=== PATIENT | female | born 1995 | race Caucasian/White ===

== ENCOUNTER 2024-10-15 13:47 | Outpatient (CLI) | payer OTHER, SELFPAY ==
--- NOTE | 2024-10-15 14:00 | CRLHL7_ITS ---
For Patients: As a result of the Century Cures Act, medical imaging exams and procedure reports are released immediately into your electronic medical record. You may view this report before your referring provider. If you have questions, please contact your health care provider. INDICATION: Dating and viability. LMP 08/11/2024. COMPARISON: None. TECHNIQUE: Real-time horn-scale imaging of the pelvis was performed. FINDINGS: Sonographic imaging demonstrates a single living intrauterine gestation. The embryo has a regular cardiac rate measuring 169 beats per minute. The embryo`s crown-rump length measures 2.2 cm which corresponds to a gestational age of 9 weeks 0 days with sonographic due date 05/20/2025. There is a normal-appearing yolk sac. The placenta has not yet developed. No evidence of a perigestational hemorrhage. The right ovary measures 3.2 x 1.4 x 2.6 cm and the left ovary measures 4.1 x 2.1 x 2.5 cm. Corpus luteal cyst in the left ovary. No free fluid in the pelvic cul-de-sac. IMPRESSION: 1. Single living intrauterine gestation corresponding to an ultrasound gestational age of 9 weeks 0 days with sonographic due date 05/20/2025. 2. The clinical gestational age by LMP is 9 weeks 2 days. Dictated by Brit Garnett MD @ 10/16/2024 1:39:37 AM (Electronically Signed)
== END 2024-10-15 13:48 | disposition home or self-care (01) ==
LOC: US 13:48
PROVIDERS: Visit Provider Advanced Practice Midwife
DX: Z34.91 Encounter for supervision of normal pregnancy, unspecified, first trimester (principal); Z3A.09 9 weeks gestation of pregnancy
CPT/HCPCS: 76817

== ENCOUNTER 2024-10-15 15:00 | Outpatient (CLI) | payer OTHER, SELFPAY | END 2024-10-15 15:01 | disposition home or self-care (01) | PROVIDERS: Visit Provider Advanced Practice Midwife | DX: Z34.01 Encounter for supervision of normal first pregnancy, first trimester (principal) | CPT/HCPCS: 83020; 83021; 85660; 86592; 86703; 86704; 86706; 86762; 86787; 86803; 86850; 86900; 86901; 87086; 87340 ==

== ENCOUNTER 2024-11-12 08:05 | Outpatient (CLI) | payer OTHER, SELFPAY | END 2024-11-12 08:06 | disposition home or self-care (01) | LOC: NFLDREF 14:50 | PROVIDERS: PCP Advanced Practice Midwife; Visit Provider Advanced Practice Midwife | DX: Z34.81 Encounter for supervision of other normal pregnancy, first trimester (principal) | CPT/HCPCS: 83020; 83021; 85025; 85660; 86592; 86703; 86704; 86706; 86762; 86787; 86803; 86850; 86900; 86901; 87340 ==

== ENCOUNTER 2025-01-07 13:51 | Outpatient (CLI) | payer OTHER, SELFPAY | END 2025-01-07 13:52 | disposition home or self-care (01) | LOC: US 13:51 | PROVIDERS: Visit Provider Advanced Practice Midwife | DX: Z34.92 Encounter for supervision of normal pregnancy, unspecified, second trimester (principal); Z3A.21 21 weeks gestation of pregnancy | CPT/HCPCS: 76805 ==

== ENCOUNTER 2025-02-25 14:08 | Outpatient (CLI) | payer OTHER, SELFPAY | END 2025-02-25 14:09 | disposition home or self-care (01) | LOC: NFLDREF 03-01 05:55 | PROVIDERS: Visit Provider Advanced Practice Midwife | DX: Z34.03 Encounter for supervision of normal first pregnancy, third trimester (principal) | CPT/HCPCS: 86592 ==

== ENCOUNTER 2025-03-11 08:33 | Outpatient (CLI) | payer OTHER, SELFPAY | END 2025-03-11 08:34 | disposition home or self-care (01) | LOC: NFLDREF 03-12 11:54 | PROVIDERS: Visit Provider Advanced Practice Midwife | DX: O99.810 Abnormal glucose complicating pregnancy (principal); Z3A.30 30 weeks gestation of pregnancy | CPT/HCPCS: 82951; 82952 ==

== ENCOUNTER 2025-04-22 13:20 | Outpatient (CLI) | payer OTHER, SELFPAY | END 2025-04-22 13:21 | disposition home or self-care (01) | LOC: NFLDREF 04-25 15:54 | PROVIDERS: Visit Provider Advanced Practice Midwife | DX: Z34.03 Encounter for supervision of normal first pregnancy, third trimester (principal) | CPT/HCPCS: 87081; 87653 ==

== ENCOUNTER 2025-05-22 16:38 | Inpatient (IN) | payer OTHER, SELFPAY ==
[2025-05-22] VITALS (89 sets, daily range): BP systolic 88–183; BP diastolic 51–110; PULSE 61–86; RESP 16–25; TEMP 36.2–36.8; O2SAT 92–100; BMI 28.4
--- NOTE | 2025-05-22 17:36 | W.PM.LDBA ---
Subjective History of Present Illness Date Seen: 05/22/25 Narrative: Marleen is a 30 yo at 40 4/7 weeks gestation being admitted to Labor and Delivery for ROM with spontaneous onset of labor. She [place] was on the boat [place] in a chair when she felt her pants were damp. She then felt another gush of fluid and her white shorts were visibly wet. She was not feeling any cramping or contractions when her water broke. She reports the fluid was clear/pink tinged. She endorses movement. She stopped at her family's house to shower and get fresh clothes before heading to the hospital. She reports it was on the way when she started feeling some mild contractions. She does not feel they are painful or very close but she knows she is now having them. On arrival, her pants and wheelchair were very wet with amniotic fluid. Her full history and physical was dictated by BRAXTON Carney on 04/29/2025. Please see this for details. Initial BP on arrival was taken right when patient entered the room by accident and severe range, this was not an accurate blood pressure check. Recheck was mild range. 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 # Failed 1 hour, 180 3 hour gct ordered, passed all values # ED Visit 03/23 for Left Upper Abdominal pain with SOB and difficulty breathing, RESOLVED Likely muscular in nature, chest x-ray negative Sent home with Flexeril, hydroxyzine, oxycodone, and prednisone taper Pain resolved on 03/25 Imaging:? COVID:?? Flu:?08/17/2024? Tdap:??03/11/2025 32wk Mental Health:?? OB - Problem Based A/P Additional Plan (1) PROM with onset of labor within 24 hours of rupture: Status: Acute (2) 40 weeks gestation of : Status: Acute (3) Elevated blood pressure reading without diagnosis of hypertension: Status: Acute Plan ASSESSMENT:? 30 yo at 40.4 weeks gestation? complicated by:?failed 1 hour gct, passed 3 hour Labor type: Spontaneous, early labor? Category 1 FHR pattern.?? Labor complicated by: Elevated BP not meeting criteria for HTN at this timel? GBS negative? ? PLAN:? 1. Routine intrapartum cares as ordered. Continue with expectant management? 2. Monitoring per policy, intermittent unless she meets criteria for HTN? 3. Undecided about pain plan. Wants to be offered options. Candidate for analgesia of choice, if desired.?? 4. Patient encouraged to reposition and ambulate to promote physiologic labor and .? plan reviewed. 5. Elevated BP on arrival. Will monitor hourly unless severe range. Patient is aware if she meets criteria we will draw labs and she will need to have continuous monitoring. 6. Anticipate ? Delivery/Labor/Induction Plan Plan: expectant management OB Exam Physical Exam Vital signs: Temp Pulse Resp BP Pulse Ox 97.9 F 73 25 H 143/98 H 99 05/22/25 16:45 05/22/25 17:05 05/22/25 16:45 05/22/25 17:05 05/22/25 17:05 Narrative: Vitals Reviewed Constitutional:? Alert and oriented x3 HEENT:? Normocephalic, atraumatic Neck:? Supple Lungs:? Clear to auscultation bilaterally Heart:? Regular rate and rhythm, no murmur, rub or gallop Abdomen:? Soft, nontender, and gravid. Vertex by Rashid's, confirmed with cervical exam. Extremities:? No edema or erythema Cervix: 4 cm/80%/-2 station/vertex, lots of clear fluid with exam NST: 125 bpm/moderate variability/15x15 accelerations/no decelerations/contractions every 2-4 minutes lasting 80-120 seconds Detailed Labor and Delivery Exam Patient Gravid: yes
--- NOTE | 2025-05-22 19:28 | PM.OBCN1 ---
OB - CN: HPI Date of Consult Date Seen: 05/22/25 Patient: [facility] Patient Consult date: 05/22/25 Requesting Physician: Yolis Womack CNM Primary Care Provider: Not a Local Provider Consult Narrative Narrative: The patient is a 30 year old at 40 weeks gestation that was admitted to the Center on 05/22/25 for spontaneous onset of labor. is complicated only by elevated 1 hour glucola (normal 3 hour GTT). She is an established patient of the [facility] service, where Ob consult was requested in the setting of new diagnosis of preeclampsia with severe features. On arrival, patient was noted to have nonsustained severe range BPs. She has no history of HTN in , nor chronic HTN. At 1930, she had a sustained severe range BP necessitating treatment with IV labetolol. Stat preE labs were requested, magnesium sulfate ordered for seizure prophylaxis. Patient denies headache, vision changes or RUQ pain. She is having regular and painful contractions, found to be 4/80/-2 on admission. SROM occurred prior to admission. No vaginal bleeding or decreased movement. History of Present complications: preeclampsia History History 1 Elective abortions Para 0 Spontaneous abortions Hx # Term Pregnancies Ectopic pregnancies Hx # Pregnancies Multiple births Number of Living Children 0 Labs GBS status: negative OB Labs: Lab Assessment Start: 05/22/25 18:51 Freq: ONCE Status: Complete Protocol: PC.OBGBS Activity Type Activity Date Activity User E-sign Co-sign Detail Recorded Client Recorded Date Recorded By Document 05/22/25 18:51 [facility] No Response 05/22/25 19:06 [facility] 05/22/25 18:51 Lab Assessment GBS Status negative GBS Additional Criteria None Is Patient Allergic to Penicillin? No Are Labs Available Yes Maternal Blood Type A Maternal RH Factor Positive Evaluate Maternal Rubella Immune Status Immune Hepatitis B Surface Antigen Negative Maternal HIV Status Negative Maternal Syphillis (RPR) Status Negative [facility] Medical History (Updated 05/22/25 @ 19:36 by Gracie Orr MD) Celiac disease ?K90.0 - Celiac disease (ICD-10) Surgical History (Updated 10/15/24 @ 15:08 by Yolis Womack CNM) [place] teeth removed ?K08.409 - Partial loss of teeth, unspecified cause, unspecified class (ICD-10) History of appendectomy ?Z90.49 - Acquired absence of other specified parts of digestive tract (ICD-10) Social History (Updated 10/18/24 @ 09:24 by Yolis Womack CNM) Narrative: SOCIAL Education: Masters 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[place], in [place] Partner: Patrick, [employer] in [place] Lives with: Pets: Dog, Benjamin Abuse: Denies past/present Special Diet: Gluten Free Ok with a blood transfusion: yes Culture or orthodoxy beliefs: denies RISK FACTORS Exercise Times/wk: Cross Fit, 3-4x per week; and walking Hx of Depression and/or Anxiety/other mood disorder: Anxiety, during PA school; was on Lexapro; not on medications and not seeing therapist Seat Belt Use: Routinely Smoking: Denies past/present Alcohol/day: Denies while ; Socially weekends Caffeine: Coffee, and occasional bubbler Drug Use: Denies past/present Chicken Pox: Yes as a child and vaccinated MRSA: Denies What is your current living situation?: I presently have a place to live Problems where you live: no known problems In the past 12 months, utilities in danger of being shut off: no In past 12 months, lack of transportation kept you from medical appts, meetings, work, or getting things needed for daily living: no In the past 12 mos, have been you worried that your food would run out before you had money to buy more?: never true In the past 12 mos, the food you bought just didn't last and you didn't have money to buy more?: never true Smoking Status: Never smoker How often does anyone, including family, friends and others, physically hurt you: never How often does anyone, including family, friends and others, insult or talk down to you: never How often does anyone, including family, friends and others, threaten you with harm: never How often does anyone, including family, friends and others, scream or curse at you: never Meds Home Medications and Allergies Home Medications ?Medication ?Instructions ?Recorded ?Confirmed ?Type vit 168-iron 27 mg-folic 1 cap PO DAILY 10/15/24 05/22/25 History acid 800 mcg-omega3 235 mg capsule (One-A-Day -1) cetirizine 10 mg capsule (Zyrtec) 10 mg PO QDAY PRN 04/08/25 05/22/25 History Allergies Allergy/AdvReac Type Severity Reaction Status Date / Time gluten Allergy Severe Verified 05/22/25 16:38 OB - H&P: Exam Physical Exam: Vital signs: Temp Pulse Resp BP Pulse Ox 97.9 F 63 21 169/107 H 98 05/22/25 18:01 05/22/25 19:17 05/22/25 18:01 05/22/25 19:17 05/22/25 18:03 Narrative: Patient was not personally examined. Exam per RN and Yolis Womack CNM. General: Alert and oriented Psych: Appropriate mood and affect Abdomen: Gravid. No RUQ tenderness. FHR: Category 1 - baseline 130bpm, moderate variability, accelerations present, no apparent decelerations Aline: Contractions q2-3 minutes OB - CN: A/P Assessment and Plan (1) Preeclampsia, severe: Status: Acute (2) PROM with onset of labor within 24 hours of rupture: Status: Acute (3) 40 weeks gestation of : Status: Acute Plan Marleen is a 30yo at 40w4d GA who presented for spontaneous onset of labor with SROM. On arrival, she was diagnosed with preeclampsia with severe features given systained SRBP necessitating treatment with IV Labetolol. She is an established patient of CNM service, Ob consult requested by Yolis Womack CNM. is otherwise complicated only by elevated 1 hour glucola (normal 3 hour GTT). - Patient is s/p treatment with IV labetolol 20mg then 40mg. Continue diligent BP monitoring, plan to treat sustained SRBP per protocol - No long acting antihypertensive regimen at this time, will continue starting nifedipine XL pending serial BP monitoring following response to IV labetolol - Magnesium sulfate ongoing - 4g loading dose followed by 2g/hour intrapartum and x24 hours - Serial preE labs with mag level Q6H while on magnesium. Admission set notable for: Platelets of 150, Cr 1.0, AST 45 and ALT 17. Of note, we have no prior Cr for comparison. If patient has a Cr rise to >=1.1, plan to reduce magnesium dose to 1g/hour. - Continuous monitoring ongoing. - Recommend active management of labor in the setting of preeclampsia with severe features. Expectant management ongoing at this time, given regular/painful contractions with SROM prior to admission. Admission exam /-2. Recommend pitocin augmentation as needed. - Pain control per patient preference, planning epidural - After discussion with Yolis Womack CNM we are mutually comfortable with CNM service managing labor while Ob service will manage preE with SF. Plan to continue with this co-management strategy so long as both services remain comfortable. Ob service to round . - BT A+, GBS negative - Pediatrics to attend delivery in the setting of preE with SF - Dr. Sherlyn Siddiqi to assume care at 0700 on 05/23
[2025-05-22] MEDS: LABETALOL HCL 5 MG/ML inj IVP ×2 (19:31→19:48)
[2025-05-22 19:37] LABS: Hematocrit 36.1 % (33.0-51.0); Hemoglobin* 12.6 gm/dL (12.0-16.0); Mean Corpuscular HGB Conc 35 gm/dL (32-36); Mean Corpuscular Hemoglobin 32 pg (26-34); Mean Corpuscular Volume 90 fL (80-100); Red Blood Count 4.00 m/uL (4.00-5.20); White Blood Count* 13.48 K/uL (4.50-11.00)
[2025-05-22] MEDS: MAGNESIUM IV 4 GM/100 ML PIGGYBACK IVPB (19:38)
[2025-05-22] MEDS: LACTATED RINGERS 1000 ML 1,000 ML 75 ML IV (19:38)
[2025-05-22 19:45] LABS: Slide Review Reflex No
--- NOTE | 2025-05-22 20:17 | P.OBPN_ITS ---
Subjective Date Seen: 05/22/25 Narrative: Marleen is a 30 yo at 40 4/7 weeks gestation being admitted to Labor and Delivery for ROM with spontaneous onset of labor. SROM occurred at 1310. She has since continued to leak pink to clear tinged fluid. She continues to progress spontaneously. She is supported in labor by her , Patrick. Her blood pressure at 1859 was severe range and it remained elevated on repeat. Provider was in a delivery but instructed the RN to start magnesium, treat BP, and notify MD economics professor. When CNM was available, she presented to patient bedside and reviewed plan of care. Shortly before this, patient had requested an epidural for pain management. IV was started, BP was treated with IV labetalol, and magnesium was started. She denies any epigastric pain, headache, or blurred vision. She does report feeling off but this was at the time magnesium had been started. All questions and concerns were reviewed with patient. They report understanding and agree with plan. Objective Exam: Objective: Constitutional: Alert and oriented x3, [mild/moderate/severe] distress, coping well Vital signs stable, see nurse documentation Abdomen: gravid, contractions palpate [mild/moderate/strong] with contractions and soft between Cervix: deferred NST: 125 bpm/moderate variability/15x15 accelerations/no decelerations/contractions every 2-4 minutes lasting 90 seconds. Vital Signs: Last Vital Signs Temp 97.9 F 05/22/25 18:01 Pulse 67 05/22/25 20:04 Resp 21 05/22/25 18:01 BP 160/95 H 05/22/25 20:04 Pulse Ox 97 05/22/25 20:06 Comments: WBC 13.48 K/uL (4.50-11.00) H 05/22/25 19: RBC 4.00 m/uL (4.00-5.20) 05/22/25 19:29 Hgb 12.6 gm/dL (12.0-16.0) 05/22/25 19:29 Hct 36.1 % (33.0-51.0) 05/22/25 19:29 MCV 90 fL (80-100) 05/22/25 19:29 MCH 32 pg (26-34) 05/22/25 19: MCHC 35 gm/dL (32-36) 05/22/25 19:29 Plt Count 150 K/uL (140-440) 05/22/25 19:29 BUN 14 mg/dL (5-24) 05/22/25 19: Creatinine 1.0 mg/dL (0.5-1.5) 05/22/25 19:29 Estimated Creat Clear 75.61 05/22/25 19:29 Estimated GFR 77 ml/min 05/22/25 19:29 AST 45 U/L (12-35) H 05/22/25 19: ALT 17 U/L (4-35) 05/22/25 19:29 Plan Plan: ASSESSMENT:? 30 yo at 40.4 weeks gestation? complicated by:?failed 1 hour gct, passed 3 hour Labor type: Spontaneous, early labor? Category 1 FHR pattern.?? Labor complicated by: Severe Pre-eclampsia based on sustained BP GBS negative? ? PLAN:? 1. Routine intrapartum cares as ordered. Continue with expectant management. If labor 2. Monitoring per policy, intermittent unless she meets criteria for HTN? 3. Requested epidural. Recommend magnesium bolus to be started and 1/2 way through before epidural placement. Will hold treating BP's when anesthesia is at bedside to reduce risk of low BP or distress after epidural placement. 4. Patient encouraged to reposition and ambulate to promote physiologic labor and .? plan reviewed. 5. Labs drawn, IV placed, IV magnesium started, BP treated with IV labetalol x [address] Orr consulted for comanagement during labor. She is aware of patient status and plan. Labs still pending. She recommended holding off on BP long acting at this time. Labs WNL with mildly elevated AST of 45 and Creatinine is 1.0. Per Dr. Orr, if it rises above 1.1 we are to notify her and adjust magnesium to 1 g per hour. Labs ordered for every 6 hours. CNM will continue management of labor and comanage with Dr. Orr who will manage the Pre-eclampsia. MD will assume care until discharge. 6. Anticipate
[2025-05-22 20:23] LABS: Alanine Aminotransferase* 17 U/L (4-35); Blood Urea Nitrogen* 14 mg/dL (5-24); Creatinine* 1.0 mg/dL (0.5-1.5); Est. Creatinine Clearance* 75.61; Estimated Glomerular Filt Rate 77 ml/min
[2025-05-22] MEDS: MAGNESIUM Infusion 40 GM/1,000 ML IV.SOLN IVPB (20:24)
[2025-05-22] MEDS: ROPIVACAINE 0.2 % PF 10 ML INJ 20 MG EPIDURAL (20:25)
[2025-05-22] MEDS: LIDOCAINE 2% (PF) 5 ML VIAL EPIDURAL (20:25)
[2025-05-22 20:26] LABS: Aspartate Amino Transferase* 45 U/L (12-35)
[2025-05-22] MEDS: ROPIVACAINE 0.2% 100 ml 100 ML 12 MG EPIDURAL (20:37)
--- NOTE | 2025-05-22 20:37 | PM.ANBPRC ---
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 [employer] in [place] Lives with: Pets: Dog, Benjamin Abuse: Denies past/present Special Diet: Gluten Free Ok with a blood transfusion: yes Culture or holiness beliefs: denies RISK FACTORS Exercise Times/wk: Cross Fit, 3-4x per week; and walking Hx of Depression and/or Anxiety/other mood disorder: Anxiety, during PA school; was on Lexapro; not on medications and not seeing therapist Seat Belt Use: Routinely Smoking: Denies past/present Alcohol/day: Denies while ; Socially weekends Caffeine: Coffee, and occasional bubbler Drug Use: Denies past/present Chicken Pox: Yes as a child and vaccinated MRSA: Denies What is your current living situation?: I presently have a place to live Problems where you live: no known problems In the past 12 months, utilities in danger of being shut off: no In past 12 months, lack of transportation kept you from medical appts, meetings, work, or getting things needed for daily living: no In the past 12 mos, have been you worried that your food would run out before you had money to buy more?: never true In the past 12 mos, the food you bought just didn't last and you didn't have money to buy more?: never true Smoking Status: Never smoker How often does anyone, including family, friends and others, physically hurt you: never How often does anyone, including family, friends and others, insult or talk down to you: never How often does anyone, including family, friends and others, threaten you with harm: never How often does anyone, including family, friends and others, scream or curse at you: never Meds Home Medications and Allergies Home Medications ?Medication ?Instructions ?Recorded ?Confirmed ?Type vit 168-iron 27 mg-folic 1 cap PO DAILY 10/15/24 05/22/25 History acid 800 mcg-omega3 235 mg capsule (One-A-Day -1) cetirizine 10 mg capsule (Zyrtec) 10 mg PO QDAY PRN 04/08/25 05/22/25 History Allergies Allergy/AdvReac Type Severity Reaction Status Date / Time gluten Allergy Severe Verified 05/22/25 16:38 Results Labs Labs: Laboratory Results - last 24 hr 05/22/25 19:29 WBC 13.48 H RBC 4.00 Hgb 12.6 Hct 36.1 MCV 90 MCH 32 MCHC 35 Plt Count 150 BUN 14 Creatinine 1.0 Estimated Creat Clear 75.61 Estimated GFR 77 AST 45 H ALT 17 Vital Signs Vital Signs: Last Vital Signs Temp 97.9 F 05/22/25 18:01 Pulse 64 05/22/25 20:35 Resp 21 05/22/25 18:01 BP 118/75 05/22/25 20:35 Pulse Ox 98 05/22/25 20:36 Weight: 79.832 kg Height: 167.64 cm Anesthesia Procedures Epidural Insertion Patient Location: OB Start Time: 19:40 Stop Time: 20:37 Start Date: 05/22/25 Stop Date: 05/22/25 Reason for Block: procedure for pain Patient Position: sitting Performed By: Ramon Elkins Preanesthetic Checklist: IV checked, risks and benefits discussed, surgical consent, monitors and equipment checked, pre-op evaluation, timeout performed and anesthesia consent Prep: chlorhexidine gluconate Monitoring: blood pressure monitoring, continuous pulse oximetry and heart rate Approach: midline Vertebral Space: lumbar (1-5) Needle Type: Tuohy needle Injection Technique: continuous catheter Needle gauge: 17 Needle Length (cm): 10 cm Needle Insertion Depth (cm): 7 Catheter Gauge: 19 Catheter Type: multi-orifice Catheter at skin depth (cm): 13 Test Dose Result: negative and lidocaine 1.5% with epinephrine 1 to 200,000
[2025-05-22] MEDS: ePHEDrine sulfate 5 MG/ML inj 10 MG IVP ×2 (20:52→21:22)
[2025-05-22] MEDS: PHENYLEPHRINE 100 MCG/ML SYRINGE IVP (21:32)
[2025-05-22] MEDS: OXYTOCIN 30 unit/500 ML in NS 30 UNIT/500 ML BAG IVPB (22:54)
[2025-05-23] VITALS (112 sets, daily range): BP systolic 97–152; BP diastolic 52–99; PULSE 65–89; RESP 16–24; TEMP 36.3–37; O2SAT 90–100
[2025-05-23 01:14] LABS: Hematocrit 32.6 % (33.0-51.0); Hemoglobin* 11.4 gm/dL (12.0-16.0); Mean Corpuscular HGB Conc 35 gm/dL (32-36); Mean Corpuscular Hemoglobin 32 pg (26-34); Mean Corpuscular Volume 90 fL (80-100); Red Blood Count 3.62 m/uL (4.00-5.20); White Blood Count* 15.96 K/uL (4.50-11.00)
[2025-05-23 01:19] LABS: Slide Review Reflex No
[2025-05-23 01:31] LABS: Alanine Aminotransferase* 15 U/L (4-35); Aspartate Amino Transferase* 32 U/L (12-35); Blood Urea Nitrogen* 13 mg/dL (5-24); Creatinine* 1.0 mg/dL (0.5-1.5); Est. Creatinine Clearance* 75.61; Estimated Glomerular Filt Rate 77 ml/min
[2025-05-23] MEDS: PHENYLEPHRINE 100 MCG/ML SYRINGE IVP (01:46)
[2025-05-23] MEDS: LIDOCAINE 2% (PF) 5 ML VIAL EPIDURAL (01:50)
[2025-05-23] MEDS: ROPIVACAINE 0.2% 100 ml 100 ML 12 MG EPIDURAL (03:17)
[2025-05-23] MEDS: LACTATED RINGERS 1000 ML 1,000 ML 75 ML IV (03:35)
[2025-05-23] MEDS: OXYTOCIN 30 unit/500 ML in NS 30 UNIT/500 ML BAG 300 UNIT IVPB (06:10)
[2025-05-23] MEDS: LIDOCAINE 1 % PF 30 ML INJECTION (06:22)
[2025-05-23] MEDS: miSOPROStoL 800 MCG/4 TABLET PR (06:43)
[2025-05-23 07:03] LABS: Hematocrit 30.9 % (33.0-51.0); Hemoglobin* 10.6 gm/dL (12.0-16.0); Mean Corpuscular HGB Conc 34 gm/dL (32-36); Mean Corpuscular Hemoglobin 32 pg (26-34); Mean Corpuscular Volume 92 fL (80-100); Red Blood Count 3.37 m/uL (4.00-5.20); White Blood Count* 16.32 K/uL (4.50-11.00)
[2025-05-23 07:13] LABS: Slide Review Reflex Yes
[2025-05-23 07:18] LABS: Blood Urea Nitrogen* 15 mg/dL (5-24); Creatinine* 1.3 mg/dL (0.5-1.5); Est. Creatinine Clearance* 58.16; Estimated Glomerular Filt Rate 56 ml/min
[2025-05-23 07:19] LABS: Alanine Aminotransferase* 20 U/L (4-35); Aspartate Amino Transferase* 38 U/L (12-35)
--- NOTE | 2025-05-23 07:19 | W.PM.OBVAGDE ---
OB Procedure Vag Delivery Mother Details Mother Details: The patient is a 30 year-old, 1, now Para 1, admitted on 05/22/25 at 40.5 weeks gestation. : 1 Para: 1 Weeks Gestation: 40.5 Admission Date: 05/23/25 Additional Details Amniotic Membrane Status: SROM Amniotic Membrane Rupture Date: 05/22/25 Amniotic Membrane Rupture Time: 13:10 Amniotic Membrane Fluid Description: Clear Analgesia/Anesthesia Type: Epidural Waterbirth: No Pitcoin: Yes Intrapartal Events: Labor Augmentation Delivery augmentation: pitocin Labor Onset: 22:20 Complete: 04:00 Pushin:40 Heart: heart tones during second stage were reassuring with occasional decelerations with pushing that return to baseline in between, overall reassuring. Delivery Details Delivery Date: 05/23/25 Delivery Time: 05:56 Route of delivery: Infant Gender: Female Infant Viability: Alive; Heart Rate Present Position at Delivery: OA Delivery Details: Patient was admitted for SROM with spontaneous onset of labor and progressed with augmentation. Her labor was complicated by severe range blood pressures with initiation of IV magnesium. She shortly after got an epidural and contractions spaced out. IV pitocin was started for augmentation with her highest dose of 18 mu. SROM noted at 1310 with clear fluid. Patient was complete at 0400 and pushing at 0440. She pushed well. of a viable male at 0556 in semi-pendleton left tilt on the bed. Vertex delivered OA. Nuchal cord identified and unable to reduce so somersaulted through. No shoulder. Body delivered easily and without incident. Infant passed to mothers abdomen with a vigorous cry. Cord was clamped and cut at > 5 minutes. APGARS were 8 at one minute and 9 at five minutes respectively. Mouth was bulb suctioned. Intact placenta with a 3 vessel cord delivered spontaneously at 0612. Fundus firm. 2nd degree perineal laceration identified and repaired in typical fashion. EBL 600 cc, bag was contaminated with amniotic fluid and urine. Mother and baby stable; mother plans to breastfeed. weight 3975g. 1 Minute Interval Total Score: 8 5 Minute Interval Total Score: 9 Additional Details Shoulder Dystocia: No Placenta Delivery Time: 06:12 Placental Delivery Description: Spontaneous Delivery repair: Vicryl Procedure Done: Global Blood Loss: 600 Laceration: Perineal - 2nd Degree Blood Loss Measurement Type: EBL Sponge/Need Count Correct: Yes Cord Vessel Description: 3 Vessels, Nuchal Cord and Delivered through Event Summary Status: Mother and were stable after delivery. Care to be assumed by MD for management of Severe Pre-eclampsia in the , report given to Dr. Siddiqi. Disposition: floor
[2025-05-23 07:34] LABS: Slide Review Acceptable Review (Acceptable)
[2025-05-23] MEDS: MAGNESIUM Infusion 40 GM/1,000 ML IV.SOLN IVPB ×2 (07:50→20:31)
--- NOTE | 2025-05-23 12:26 | PM.OBPNVD1 ---
OB - PN:Subj Subjective Time Seen by Provider: 12:00 Date Seen: 05/23/25 Interval history: The patient is a 30 year old at 40 weeks gestation that was admitted to the Center on 05/22/25 for spontaneous onset of labor. She had an uncomplicated on 05/23/2025. Intrapartum, she was diagosed with preeclampsia with severe features requiring IV antihypertensive medication. Narrative: Currently, patient feels well but understandably fatigued. Still having intermittent cramping similar to a contraction. This is anticipated as she is as well. Her pain is well controlled on oral pain medications. Had some nausea earlier in the day but starting to regain her appetite. Has been eating lunch and no nausea. She has passed flatus. She is ambulating without difficulty. Lochia is scant. She is urinating without cuenca. Patient denies chest pain, SOB, n/v, headache, RUQ pain, vision changes, dizziness. We discussed her anticipated recovery course. She understands that she requires 24 hours of magnesium and we would want to monitor her for an additiona 24 hours after that. OB - PN: Obj Exam Physical Exam: Vital signs: Temp Pulse Resp BP Pulse Ox O2 Del Method 98.0 F 83 16 113/73 97 Room Air 05/23/25 11:14 05/23/25 11:14 05/23/25 11:14 05/23/25 11:14 05/23/25 11:14 05/23/25 11:14 Narrative: Physical exam: General: No acute distress Psych: Alert and oriented x4, full affect HEENT: Normocephalic, atraumatic Heart: Regular rate and rhythm, no murmur rub or gallop Lungs: Clear to auscultation bilaterally Abdomen: Soft, no tenderness, rebound, or guarding. Uterus firm 3 cm below umbilicus. No fundal tenderness Skin: No lesions or rashes Lower extremities: No edema or erythema Pelvic exam: Scant lochia OB - PN: Obj Data Labs Labs: Laboratory Results - last 24 hr 05/22/25 05/23/25 05/23/25 19:29 01:05 06:55 WBC 13.48 H 15.96 H 16.32 H RBC 4.00 3.62 L 3.37 L Hgb 12.6 11.4 L 10.6 L Hct 36.1 32.6 L 30.9 L MCV 90 90 92 MCH 32 32 32 MCHC 35 35 34 Plt Count 150 119 L 134 L Diff Slide Review Acceptable Review BUN 14 13 15 Creatinine 1.0 1.0 1.3 Estimated Creat Clear 75.61 75.61 58.16 Estimated GFR 77 77 56 Magnesium 5.9 H* 7.5 H* AST 45 H 32 38 H ALT 17 15 20 OB - PN: A/P Delivery Assessment and Plan (1) Preeclampsia, severe: Status: Acute Plan Postoperative/post delivery Review: - Admitted for: Spontaneous labor - Laceration: 2nd degree - Closure: sutures. - Estimated blood loss: 600 mL Pre-Eclampsia with severe features - Based on severe ranging blood pressures requiring IV antihypertensives (40 mg IV labetalol) - BPs after delivery wnl, 110-130s/60-80s - Symptoms: denies - Magnesium: on Magnesium for seizure ppx, rate reduced to 1g per hour due to Cr of 1.3 @ 0645 labs. Magnesium in therapeutic range at 7.5 mg/dL. - IV antihypertensives: currently not indicated - Pre-eclampsia labs on 05/23/25 at 0645: Hgb 10.6 Plt 134 Cr 1.3 ALT 20 AST 38 - UOP: Adequate at 1.10 cc/kg/hr since 0800 - Q6H labs continuing Postoperative care: - Diet: Advance as tolerated - Fluid: Encourage oral intake - Activity: Encourage ambulation and incentive spirometry - Pain: Acetaminophen, Ibuprofen - DVT prophylaxis: SCDs and TEDs when not ambulating. Dispo: Patient is PPD#0. Need the following milestones: complete 24 hours of mag infusion and 24 hours of monitoring off mag. Anticipate discharge PPD#2.
[2025-05-23 12:59] LABS: Hematocrit 26.2 % (33.0-51.0); Hemoglobin* 9.1 gm/dL (12.0-16.0); Mean Corpuscular HGB Conc 35 gm/dL (32-36); Mean Corpuscular Hemoglobin 32 pg (26-34); Mean Corpuscular Volume 92 fL (80-100); Red Blood Count 2.86 m/uL (4.00-5.20); White Blood Count* 18.92 K/uL (4.50-11.00)
[2025-05-23 13:10] LABS: Slide Review Reflex Yes
[2025-05-23 13:15] LABS: Alanine Aminotransferase* 15 U/L (4-35); Aspartate Amino Transferase* 35 U/L (12-35); Blood Urea Nitrogen* 15 mg/dL (5-24); Creatinine* 1.1 mg/dL (0.5-1.5); Est. Creatinine Clearance* 68.73; Estimated Glomerular Filt Rate 68 ml/min
[2025-05-23 13:22] LABS: Slide Review Acceptable Review (Acceptable)
[2025-05-23] MEDS: LACTATED RINGERS 1000 ML 1,000 ML 100 ML IV (15:07)
[2025-05-23] MEDS: DOCUSATE SODIUM 100 MG CAPSULE PO (15:08)
[2025-05-23 19:19] LABS: Hematocrit 26.0 % (33.0-51.0); Hemoglobin* 8.9 gm/dL (12.0-16.0); Mean Corpuscular HGB Conc 34 gm/dL (32-36); Mean Corpuscular Hemoglobin 31 pg (26-34); Mean Corpuscular Volume 92 fL (80-100); Red Blood Count 2.83 m/uL (4.00-5.20); White Blood Count* 17.79 K/uL (4.50-11.00)
[2025-05-23 19:20] LABS: Slide Review Reflex No
[2025-05-23 19:36] LABS: Alanine Aminotransferase* 18 U/L (4-35); Aspartate Amino Transferase* 38 U/L (12-35); Blood Urea Nitrogen* 16 mg/dL (5-24); Creatinine* 1.2 mg/dL (0.5-1.5); Est. Creatinine Clearance* 63.01; Estimated Glomerular Filt Rate 62 ml/min
[2025-05-23] MEDS: IBUPROFEN 600 MG TABLET PO (20:30)
[2025-05-24] VITALS (8 sets, daily range): BP systolic 118–138; BP diastolic 76–91; PULSE 63–87; RESP 15–20; TEMP 36.4–37.1; O2SAT 96–98
[2025-05-24] MEDS: LACTATED RINGERS 1000 ML 1,000 ML 100 ML IV ×2 (00:46→06:24)
[2025-05-24 01:05] LABS: Hematocrit 23.8 % (33.0-51.0); Hemoglobin* 8.3 gm/dL (12.0-16.0); Mean Corpuscular HGB Conc 35 gm/dL (32-36); Mean Corpuscular Hemoglobin 32 pg (26-34); Mean Corpuscular Volume 91 fL (80-100); Red Blood Count 2.61 m/uL (4.00-5.20); White Blood Count* 17.17 K/uL (4.50-11.00)
[2025-05-24 01:18] LABS: Slide Review Reflex No
[2025-05-24 01:20] LABS: Alanine Aminotransferase* 14 U/L (4-35); Aspartate Amino Transferase* 36 U/L (12-35); Blood Urea Nitrogen* 17 mg/dL (5-24); Creatinine* 1.1 mg/dL (0.5-1.5); Est. Creatinine Clearance* 68.73; Estimated Glomerular Filt Rate 68 ml/min
[2025-05-24 07:21] LABS: Hematocrit 23.1 % (33.0-51.0); Hemoglobin* 8.0 gm/dL (12.0-16.0); Mean Corpuscular HGB Conc 35 gm/dL (32-36); Mean Corpuscular Hemoglobin 32 pg (26-34); Mean Corpuscular Volume 92 fL (80-100); Red Blood Count 2.52 m/uL (4.00-5.20); White Blood Count* 14.00 K/uL (4.50-11.00)
[2025-05-24 07:35] LABS: Slide Review Reflex No
[2025-05-24 07:37] LABS: Alanine Aminotransferase* 14 U/L (4-35); Aspartate Amino Transferase* 36 U/L (12-35); Blood Urea Nitrogen* 15 mg/dL (5-24); Creatinine* 1.0 mg/dL (0.5-1.5); Est. Creatinine Clearance* 75.61; Estimated Glomerular Filt Rate 77 ml/min
[2025-05-24] MEDS: DOCUSATE SODIUM 100 MG CAPSULE PO (08:13)
--- NOTE | 2025-05-24 09:06 | P.OBPN_ITS ---
OB - PN:Subj Subjective Date Seen: 05/24/25 Interval history: Marleen is a 30 yo G1 now P1-0-0-1 woman who is s/p on 05/23/25 at 40 5/7 weeks' gestation after presenting with SROM. She was diagnosed with preeclampsia with severe features (by BP criteria accompanied by creatinine elev ation to 1.3) during her labor course. She is s/p 24 hours of magnesium sulfate infusion, completed around 0700 today. OB - PN: Obj Exam Physical Exam: Vital signs: Temp Pulse Resp BP Pulse Ox O2 Del Method 97.6 F 71 15 118/76 96 Room Air 05/24/25 08:19 05/24/25 08:19 05/24/25 08:19 05/24/25 08:19 05/24/25 08:19 05/24/25 08:19 She has been normotensive throughout her course 4150 mL of urine output in the last 24 h ours Narrative: General: Pleasant, no acute distress Heart: Regular rate and rhythm, no murmur or gallop Lungs: Clear to auscultation bilaterally Abdomen: Soft, nontender, fundus well below umbilicus Lower extremities: 2+ bilateral edema, no erythema OB - PN: Obj Data Labs Labs: Laboratory Results - last 24 hr 05/23/25 05/23/25 05/24/25 12:52 18:52 01:00 WBC 18.92 H 17.79 H 17.17 H RBC 2.86 L 2.83 L 2.61 L Hgb 9.1 L 8.9 L 8.3 L Hct 26.2 L 26.0 L 23.8 L MCV 92 92 91 MCH 32 31 32 MCHC 35 34 35 Plt Count 150 140 119 L Diff Slide Review Acceptable Review BUN 15 16 17 Creatinine 1.1 1.2 1.1 Estimated Creat Clear 68.73 63.01 68.73 Estimated GFR 68 62 68 Magnesium 6.1 H* 5.6 H* 5.3 H* AST 35 38 H 36 H ALT 15 18 14 05/24/25 07:12 WBC 14.00 H RBC 2.52 L Hgb 8.0 L Hct 23.1 L MCV 92 MCH 32 MCHC 35 Plt Count 121 L Diff Slide Review BUN 15 Creatinine 1.0 Estimated Creat Clear 75.61 Estimated GFR 77 Magnesium 4.7 H* AST 36 H ALT 14 OB - PN: A/P Delivery Assessment and Plan (1) Preeclampsia, severe: Status: Acute Assessment and Plan: Continue to follow BP today to determine need for antihypertensives. Repeat HELLP labs tomorrow with particular attention to creatinine. (2) Normal spontaneous vaginal delivery: Status: Acute (3) Anemia associated with acute blood loss: Status: Acute Assessment and Plan: Begin ferrous sulfate 325 mg QOD. Plan day: 1 Plan: routine care Comments: Discharge tomorrow if BPs stable.
[2025-05-24] MEDS: FERROUS SULFATE 325 MG TABLET PO (09:51)
[2025-05-25 00:09] VITALS: BP 130/81; PULSE 79; RESP 16; O2SAT 97
[2025-05-25 03:29] VITALS: BP 130/80; PULSE 64; RESP 16; TEMP 36.7; O2SAT 96
[2025-05-25 05:18] LABS: Hematocrit 23.6 % (33.0-51.0); Hemoglobin* 8.1 gm/dL (12.0-16.0); Immature Granulocytes Pct Auto 0.4 %; Mean Corpuscular HGB Conc 34 gm/dL (32-36); Mean Corpuscular Hemoglobin 32 pg (26-34); Mean Corpuscular Volume 93 fL (80-100); RDW Coefficient of Variation % 12.8 % (11.5-15.5); Red Blood Count 2.53 m/uL (4.00-5.20); White Blood Count* 12.80 K/uL (4.50-11.00)
[2025-05-25 05:19] LABS: Immature Granulocytes Abs Auto 0.10 K/uL (0.00-0.30); Lymphocytes Absolute Auto 3.50 K/uL (0.90-2.90); Slide Review Reflex No
[2025-05-25 05:37] LABS: Alanine Aminotransferase* 14 U/L (4-35); Aspartate Amino Transferase* 36 U/L (12-35); Blood Urea Nitrogen* 15 mg/dL (5-24); Creatinine* 1.0 mg/dL (0.5-1.5); Est. Creatinine Clearance* 75.61; Estimated Glomerular Filt Rate 77 ml/min
[2025-05-25 06:37] VITALS: BP 142/93; PULSE 63; RESP 16; O2SAT 97
[2025-05-25 07:35] VITALS: BP 135/88; PULSE 65; RESP 16; TEMP 36.7; O2SAT 98
[2025-05-25] MEDS: DOCUSATE SODIUM 100 MG CAPSULE PO (07:41)
[2025-05-25] MEDS: LABETALOL HCL 100 MG TABLET PO (07:42)
--- NOTE | 2025-05-25 08:30 | P.DS_ITS ---
DS: Providers Provider Time Seen by Provider: 08:30 Date Seen: 05/25/25 Date of admission: 05/22/25 16:38 Primary care physician: Not a Local Provider Admitting Clinician: Yolis Womack CNM Consults: 05/22/25 20:17 Consult to Physician [CONS] Routine Comment: Consulting Provider: Gracie Orr Has provider been notified: Yes Attending Physician on discharge: Yolis Womack CNM Exam Narrative: Exam Narrative: Vital signs reviewed, within normal limits given her diagnosis of preeclampsia. General: Alert and oriented, in no acute distress Psych: Appropriate mood and affect Heart: Regular rate and rhythm, no rubs murmurs or gallops Lungs: Clear to posterior auscultation throughout. Abdomen: Soft, nondistended. No right upper quadrant tenderness. Fundus palpates firm at 1 below umbilicus. UOP: robust, 1450cc in last 8 hours Const: Vital Signs, click to edit/add: Vital Signs - 24 hr 05/24/25 11:35 05/24/25 17:48 05/24/25 18:02 Temperature 97.6 F 98.7 F Pulse Rate [Pulse Oximeter] 71 68 Respiratory Rate 16 16 Blood Pressure [Le ft Arm] 120/82 138/91 H 128/81 Pulse Oximetry 97 98 Oxygen Delivery Me thod Room Air Room Air 05/24/25 20:24 05/25/25 00:09 05/25/25 03:29 Temperature 98.2 F 98.1 F Pulse Rate [Pulse Oximeter] 87 79 64 Respiratory Rate 16 16 16 Blood Pressure [Le ft Arm] 129/78 130/81 130/80 Pulse Oximetry 97 97 96 Oxygen Delivery Me thod Room Air Room Air Room Air 05/25/25 06:37 05/25/25 07:35 Temperature 98.1 F Pulse Rate [Pulse Oximeter] 63 65 Respiratory Rate 16 16 Blood Pressure [Le ft Arm] 142/93 H 135/88 Pulse Oximetry 97 98 Oxygen Delivery Me thod Room Air Room Air OB - DS: Summary Hospital Course Hospital Course: The patient is a 30 year old G 1 P 1 at 40 weeks gestation that was admitted to the Center on 05/22/25 for spontaneous onset of labor. Shortly after admission, she was diagnosed with preeclampsia with severe features (severe range blood pressures necessitating treatment, later elevated creatinine). She had an uncomplicated vaginal delivery. She delivered a viable male . She is breast feeding. the patient has done well. Marleen received 24 hours of magnesium sulfate for seizure prophylaxis. Her blood pressures have primarily been in the normal to low mild range. Started labetalol 100 mg b.i.d. this morning, where several hours of blood pre ssure monitoring continued an excellent improvement in blood pressure was noted. She denies any headaches, vision changes or right upper quadrant pain. She notes robust urine output, minimal edema. Serial preeclampsia labs demonstrated interval improvement. Patient denies any significant abdominal/perineal pain, well controlled on Tylenol primarily. Lochia is described as small volume. Tolerating p.o. intake without nausea/vomiting. Voiding spontaneously, passing flatus. No bowel movement yet. Denies fever/chills, dizziness or lightheadedness. Baby Dannie is doing well, successfully. Peripartum Data Infant delivery method: Vaginal Laceration description: Perineal - 2nd Degree Sinclair Gender: Female Time Spent with Patient Time attestation: Total time spent providing and/or coordinating discharge services: Discharge Plan Discharge Disposition: Home, Self-Care Date of Admission: 05/22/25 16:38 Consulting Providers: Gracie Orr Primary Care Provider: Provider,Not a Local Condition: Stable Anticipated Discharge Date/Time: 05/25/25 13:00 Discharge Medications: New labetalol 100 mg Tablet 100 mg PO BID Qty: 60 0RF Continued One-A-Day -1 27 mg iron- 800 mcg-235 mg capsule 1 cap PO DAILY Zyrtec 10 mg capsule 10 mg PO QDAY PRN Discharge Orders: Discharge Order (Routine); Ordered 05/25/25 Ordered By: Gracie Orr Patient Education: OB High Blood Pressure DC, OB Vaginal/Breast Feeding Additional Instructions: Discharge instructions were reviewed with the patient including signs and symptoms of infection and home going medications Nothing vaginally for 6 weeks: no tampons or intercourse Do not drive while taking narcotic pain medication(s) Off Work or School for 8 weeks Symptoms to report to doctor: * Bleeding that saturates more than one pad per hour * Passing clots larger than the size of a golf ball * Pain not relieved by prescribed medication * Fever above 100.4 degrees Fahrenheit * A foul vaginal odor * Difficulty in emotions, mood, and functions * Thoughts of hurting yourself and/or * Painful, reddened area in your breast * Any drainage, redness, or tenderness in your IV/epidural site * Severe headache that doesn't improve after taking medications * Changes in vision, including temporary loss of vision, blurred vision, and/or light sensitivity * Upper abdominal pain (usually under ribs on the right side) * Decrease in urination or painful, frequent urinating * Chest pain * Shortness of breath * Tenderness or pain with redness and/swelling in the calf(s) of your leg [facility] for a BP check?05/27/25 Call and present to ED with BP greater than or equal to 160/110, unrelenting headache, vision changes or right upper quadrant pain Call for consideration of BP medication changes with BP persistently >= 140/90 2-week visit: discuss feeding concerns, review control options and screen for anxiety/depression. 6-week visit for an annual exam. consultation services are available to all mothers and babies for the first year after delivery.? To make an appointment, please call [phone]. Follow Up Appointments: Provider,Not a Local [Primary Care Provider, Family Practice] Forms: [employer] Info Instructions
[2025-05-25 09:31] VITALS: BP 114/74; PULSE 73; RESP 16; O2SAT 97
[2025-05-25 11:42] VITALS: BP 119/73; PULSE 76; RESP 16; TEMP 37.1; O2SAT 97
--- NOTE | 2025-05-27 13:04 | PM.ANPOST ---
Post Anesthesia Note Post Anesthesia Note Patient seen: Inpatient Respiratory Status: adequate Cardiovascular Status: adequate Mental Status: baseline Pain: adequate Temp: baseline Anesthetic awareness: N/A Complications: none Follow care: none
== END 2025-05-25 13:17 | disposition home or self-care (01) | DRG 806 ==
LOC: OB OUT 16:39 → OB 21:01
PROVIDERS: Obstetrics & Gynecology; Admitting Provider Advanced Practice Midwife; Visit Provider Advanced Practice Midwife
DX: O42.02 Full-term premature rupture of membranes, onset of labor within 24 hours of rupture (principal); O14.14 Severe pre-eclampsia complicating childbirth; O70.1 Second degree perineal laceration during delivery; O90.81 Anemia of the puerperium; D62 Acute posthemorrhagic anemia; O48.0 Post-term pregnancy; Z37.0 Single live birth; Z3A.40 40 weeks gestation of pregnancy
CPT/HCPCS: 01967; 36415; 82565; 82570; 83735; 84156; 84450; 84460; 84520; 85025; 85027; 86592; G0463; A9270; J2003; J2795; J3010; J3475; J7120

== ENCOUNTER 2025-07-05 11:42 | Outpatient (CLI) | payer OTHER, SELFPAY ==
[2025-07-07 15:54] LABS: HPV Source Cervical
[2025-07-10 19:51] LABS: Pap Test Digital Imaging Done
== END 2025-07-05 11:43 | disposition home or self-care (01) ==
PROVIDERS: Visit Provider Midwife
DX: Z12.4 Encounter for screening for malignant neoplasm of cervix (principal); Z11.51 Encounter for screening for human papillomavirus (HPV)
CPT/HCPCS: 87624; 87625; 88141; 88142; 88175